=== PATIENT | female | born 2000 | race Caucasian/White ===

== ENCOUNTER 2024-11-19 08:09 | Outpatient (CLI) | payer BC, SELFPAY | END 2024-11-19 08:10 | disposition home or self-care (01) | LOC: US 08:09 | PROVIDERS: Visit Provider Physician Assistant | DX: Z34.91 Encounter for supervision of normal pregnancy, unspecified, first trimester (principal); O34.81 Maternal care for other abnormalities of pelvic organs, first trimester; N83.11 Corpus luteum cyst of right ovary; Z3A.08 8 weeks gestation of pregnancy | CPT/HCPCS: 76817; 83021; 86703; 86706; 86803; 86850; 86900; 86901; 87086; 87340; 87491; 87591 ==

== ENCOUNTER 2024-11-19 09:16 | Outpatient (CLI) | payer BC, SELFPAY ==
[2024-11-19 13:42] LABS: Chlamydia DNA Amplified* NOT DETECTED (No Detected); GC DNA Amplified* NOT DETECTED (No Detected)
== END 2024-11-19 09:17 | disposition home or self-care (01) ==
PROVIDERS: Visit Provider Physician Assistant
DX: Z34.91 Encounter for supervision of normal pregnancy, unspecified, first trimester (principal); Z3A.08 8 weeks gestation of pregnancy
CPT/HCPCS: 83020; 83021; 85660; 86592; 86703; 86704; 86706; 86762; 86787; 86803; 86850; 86900; 86901; 87086; 87340; 87491; 87591

== ENCOUNTER 2025-02-11 08:14 | Outpatient (CLI) | payer BC, SELFPAY ==
--- NOTE | 2025-02-11 08:15 | CRLHL7_ITS ---
For Patients: As a result of the Century Cures Act, medical imaging exams and procedure reports are released immediately into your electronic medical record. You may view this report before your referring provider. If you have questions, please contact your health care provider. OB ULTRASOUND SURVEY LMP: 09/24/2024. SANDRITA by LMP: 07/01/2025. SANDRITA by US: 06/30/2025. GA: 20 w, 0 d. INDICATION: FAS. TECHNIQUE: Real time booth scale imaging of the fetus was performed. Evaluate anatomy. Transabdominal imaging performed. position: Vertex. Cervix: Visualized. Technique: Transabdominal. Length of closed cervix: 3.8 cm. Placenta/cord: Posterior. Technique: Transabdominal. Placenta tip to internal OS: 3.8 cm. Umbilical Cord: 3-vessel cord. Placenta insertion: Central. Amniotic Fluid: 4.4 cm SDP (greater than/equal to: 2- less than 8 cm). SURVEY: Observed Structures. Calvarium/Spine: Cerebellum: 20 cm, 20 w 4 d. Cisterna Magna: 5.8 mm. Nuchal Fold: 5.6 mm. Lateral Ventricle: 8.1 mm. CSP: Yes. Midline Falx: Yes. Choroid Plexus: Yes. Spine: Yes. Abdomen: Stomach: Yes. Abd Cord Insertion: Yes. Urinary Bladder: Yes. Kidneys: Yes. Diaphragm: No. Face: Nose/lips: No. Orbital view: Yes. Profile: No. Limbs: Upper Extremities: Yes. Lower Extremities: Yes. Hands: Yes. Feet: Yes. Vascular: 4-Chamber Heart: No. LVOT: No. RVOT: No. 3VV: No. 3VTV: No. BPD: 4.9 cm. 20 w, 5 d, 77.6 percent. HC: 18.0 cm. 20 w, 3 d, 63.3 percent. AC: 15.8 cm. 20 w, 6 d, 74.3 percent. FL: 3.6 cm. 21 w, 3 d, 87.8 percent. FL/AC ratio: 22.9 percent. HC/AC ratio: 1.1. heart rate: 161 bpm. age by this US: 20 w, 6 d. SANDRITA by this US: 06/25/2025. EFW: 398.3 g. Weight: 14 oz. Percentile by SANDRITA: 94.5 percent. IMPRESSION: 1. Concordance of clinical and sonographic dating. 2. Incomplete visualization of the diaphragm, nose, lips, profile, four-chamber heart, LVOT, RVOT, three-vessel view and three-vessel tracheal view. This is primarily due to position. The remainder of the anatomic survey is normal. Short-term follow-up recommended. Tristan Rod M.D. Diagnostic Radiologist [email or web address] ELIN/Dictated by: Tristan Rod MD @ 02/11/2025 9:54:00 PM (Electronically Signed)
== END 2025-02-11 08:15 | disposition home or self-care (01) ==
LOC: US 08:15
PROVIDERS: Visit Provider Physician Assistant
DX: Z34.92 Encounter for supervision of normal pregnancy, unspecified, second trimester (principal); O35.9XX0 Maternal care for (suspected) fetal abnormality and damage, unspecified, not applicable or unspecified; Z3A.20 20 weeks gestation of pregnancy
CPT/HCPCS: 76805

== ENCOUNTER 2025-03-04 08:44 | Outpatient (CLI) | payer BC, SELFPAY ==
--- NOTE | 2025-03-04 09:15 | CRLHL7_ITS ---
For Patients: As a result of the Cures Act, medical imaging exams and procedure reports are released immediately into your electronic medical record. You may view this report before your referring provider. If you have questions, please contact your health care provider. OB ULTRASOUND LMP: 09/24/2024. SANDRITA by LMP or US: 07/01/2025. GA: 23 w, 0 d. INDICATION: Follow-up anatomy. TECHNIQUE: Real time grayscale imaging of the fetus was performed. Transabdominal. position: Breech Cervix: Not visualized. Amniotic Fluid: 4.3 cm SDP (greater than/equal to: 2- less than 8 cm). Placenta/cord: Posterior. Technique: Transabdominal. Dopplers: Feta heart rate: 159 bpm. IMPRESSION: Normal diaphragm, nose, lips, profile, LVOT, RVOT, three-vessel trachea view, and three-vessel view along with a normal four-chamber heart. Tristan Rod M.D. Diagnostic Radiologist [email or web address] MARIA A/jesusita mc/Dictated by: Tristan Rod MD @ 03/04/2025 10:42:00 AM (Electronically Signed)
== END 2025-03-04 08:45 | disposition home or self-care (01) ==
LOC: US 08:44
PROVIDERS: Visit Provider Obstetrics & Gynecology
DX: Z34.92 Encounter for supervision of normal pregnancy, unspecified, second trimester (principal); Z3A.23 23 weeks gestation of pregnancy
CPT/HCPCS: 76816

== ENCOUNTER 2025-04-01 08:15 | Outpatient (CLI) | payer BC, SELFPAY | END 2025-04-01 08:16 | disposition home or self-care (01) | LOC: NFLDREF 04-03 02:07 | PROVIDERS: Visit Provider Obstetrics & Gynecology | DX: Z34.83 Encounter for supervision of other normal pregnancy, third trimester (principal) | CPT/HCPCS: 86592 ==

== ENCOUNTER 2025-04-08 08:15 | Outpatient (CLI) | payer BC, SELFPAY | END 2025-04-08 08:16 | disposition home or self-care (01) | LOC: NFLDREF 04-11 06:58 | PROVIDERS: Visit Provider Obstetrics & Gynecology | DX: O99.810 Abnormal glucose complicating pregnancy (principal); Z3A.27 27 weeks gestation of pregnancy | CPT/HCPCS: 82951; 82952 ==

== ENCOUNTER 2025-05-02 09:30 | Outpatient (CLI) | payer BC, SELFPAY | END 2025-05-02 09:31 | disposition home or self-care (01) | LOC: NFLDREF 09:31 | PROVIDERS: Visit Provider Obstetrics & Gynecology | DX: Z20.828 Contact with and (suspected) exposure to other viral communicable diseases (principal) | CPT/HCPCS: 86747 ==

== ENCOUNTER 2025-05-06 07:03 | Outpatient (CLI) | payer BC, SELFPAY ==
--- NOTE | 2025-05-06 07:15 | CRLHL7_ITS ---
For Patients: As a result of the Century Cures Act, medical imaging exams and procedure reports are released immediately into your electronic medical record. You may view this report before your referring provider. If you have questions, please contact your health care provider. OB ULTRASOUND FOLLOW-UP/LIMITED, 05/06/2025 CLINICAL HISTORY: Gestational diabetes. COMPARISON: 03/04/2025, 02/11/2025. TECHNIQUE: Real time booth scale imaging of the fetus was performed. Transabdominal and imaging performed. FINDINGS: SANDRITA by LMP: 07/01/2025. GA: 32 weeks 0 days. Gestation: Single. Cervix: Not visualized. Positioning: Vertex. Amniotic Fluid: 4.6 cm SDP. Placenta: Technique: TA. Placenta Position: Posterior. Dopplers: Heart Rate: 139 bpm. BIOMETRY: BPD: 8.5 cm, 34 weeks 2 days. 95% HC: 30.8 cm, 34 weeks 2 days. 75% AC: 30.0 cm, 34 weeks 0 days. 94% FL: 6.1 cm, 31 weeks 5 days. 31% FL/AC Ratio: 20.37% HC/AC Ratio: 1.02. EFW: 2196 grams. 4 lb 13 oz. Age by this US: 33 weeks 4 days. SANDRITA by this US: 06/20/2025. Percentile by SANDRITA: 84% IMPRESSION: 1. Sonographic gestational age 33 weeks 4 days and sonographic due date 06/20/2025. Sonographic age is 11 days ahead of the clinical age. 2. Estimated weight 84th percentile. Abdominal circumference 94th percentile. Tristan Rod M.D. Diagnostic Radiologist [email or web address] Transcribed: 9:16 am DW/Dictated by: Tristan Rod MD @ 05/06/2025 8:44:00 AM (Electronically Signed)
== END 2025-05-06 07:04 | disposition home or self-care (01) ==
LOC: US 07:04
PROVIDERS: Visit Provider Obstetrics & Gynecology
DX: O24.419 Gestational diabetes mellitus in pregnancy, unspecified control (principal); O36.63X0 Maternal care for excessive fetal growth, third trimester, not applicable or unspecified; Z3A.32 32 weeks gestation of pregnancy
CPT/HCPCS: 76816

== ENCOUNTER 2025-06-03 11:13 | Outpatient (CLI) | payer BC, SELFPAY ==
--- NOTE | 2025-06-03 11:30 | CRLHL7_ITS ---
For Patients: As a result of the Century Cures Act, medical imaging exams and procedure reports are released immediately into your electronic medical record. You may view this report before your referring provider. If you have questions, please contact your health care provider. OB ULTRASOUND LMP: 09/24/2024. SANDRITA by LMP: 07/01/2025. GA: 36 w, 0 d. Single. Comparison: 05/06/2025, 03/04/2025, 02/11/2025. INDICATION: GDM. TECHNIQUE: Real time grayscale imaging of the fetus was performed. Transabdominal. CERVIX: Not visualized. POSITIONING: Vertex. AMNIOTIC FLUID: 5.5 cm. SDP (N: greater than 2 x 1 cm) PLACENTA: Technique: Transabdominal. PLACENTA POSITION: Posterior. DOPPLER: heart rate: 141 bpm. BIOMETRY: BPD: 9.2 cm. 37 w, 3 d, 90.1 percent. HC: 33.8 cm. 38 w, 6 d, 85.2 percent. AC: 34.3 cm. 38 w, 1 d, >97 percent. FL: 7.1 cm. 36 w, 3 d, 55.9 percent. FL/AC ratio: 20.7 percent. HC/AC ratio: 1.0. EFW: 3296 g. Weight: 7 lbs, 4 oz. age by this US: 37 w, 5 d. SANDRITA by this US: 06/19/2025. Percentile by SANDRITA: 91.1 percent. IMPRESSION: 1. Sonographic gestational age 37 weeks 5 days with sonographic due date 06/19/2025. Sonographic age is 12 days ahead of the clinical age. 2. Estimated weight 91st percentile. Abdominal circumference greater than 97th percentile. Tristan Rod M.D. Diagnostic Radiologist [email or web address] MARIA A/jesusita mc/Dictated by: Tristan Rod MD @ 06/03/2025 3:47:00 PM (Electronically Signed)
== END 2025-06-03 11:14 | disposition home or self-care (01) ==
LOC: US 11:14
PROVIDERS: Visit Provider Obstetrics & Gynecology
DX: O24.419 Gestational diabetes mellitus in pregnancy, unspecified control (principal); O36.63X0 Maternal care for excessive fetal growth, third trimester, not applicable or unspecified; Z3A.36 36 weeks gestation of pregnancy; Z23 Encounter for immunization; Z34.90 Encounter for supervision of normal pregnancy, unspecified, unspecified trimester
CPT/HCPCS: 76816

== ENCOUNTER 2025-06-03 12:45 | Outpatient (CLI) | payer BC, SELFPAY | END 2025-06-03 12:46 | disposition home or self-care (01) | LOC: NFLDREF 06-09 02:01 | PROVIDERS: Visit Provider Advanced Practice Midwife | DX: Z23 Encounter for immunization (principal); Z34.90 Encounter for supervision of normal pregnancy, unspecified, unspecified trimester | CPT/HCPCS: 86747; 87081; 87653 ==

== ENCOUNTER 2025-07-01 11:53 | Outpatient (CLI) | payer BC, SELFPAY ==
--- NOTE | 2025-07-01 12:15 | CRLHL7_ITS ---
For Patients: As a result of the Century Cures Act, medical imaging exams and procedure reports are released immediately into your electronic medical record. You may view this report before your referring provider. If you have questions, please contact your health care provider. OBSTETRICAL ULTRASOUND ??? FOLLOW-UP INDICATION: GDMA1. Follow-up. CLINICAL HISTORY: SANDRITA by LMP: 07/01/2025 Gestational Age: 40 weeks 0 days COMPARISON: 06/03/2025, 05/06/2025, 03/04/2025 TECHNIQUE: Real-time booth-scale transabdominal imaging of the fetus was performed. FINDINGS: Fetus: Single Cervix: Not visualized positioning: Vertex Amniotic Fluid: 6.0 cm SDP Placenta technique: Transabdominal Placenta position: Posterior heart rate: 128 bpm BIOMETRY: BPD: 9.8 cm, 40 weeks 1 day, 90.5% HC: 36.1 cm, out of range, 93.7% AC: 39.2 cm, out of range, >97% FL: 7.8 cm, 40 weeks 1 day, 64.3% FL/AC Ratio: 19.98% HC/AC ratio: 0.92 EFW: 4636 grams; 10 lbs. 4 oz. age by this ultrasound: 40 weeks 1 day Percentile by SANDRITA: >97% COMMENTS: Machine unable to calculate all measurements (out of range). IMPRESSION: 1. Sonographic gestational age is 40 weeks 1 day and sonographic due date is considered out of range. 2. Estimated weight is greater than 97th percentile. Abdominal circumference is greater than 97th percentile. TRISTAN TREVIÑO M.D. Diagnostic Radiologist [email or web address] Transcribed: 1:[address]/Dictated by: Tristan Treviño MD @ 07/01/2025 12:34:00 PM (Electronically Signed)
== END 2025-07-01 11:54 | disposition home or self-care (01) ==
PROVIDERS: Visit Provider Obstetrics & Gynecology
DX: O24.410 Gestational diabetes mellitus in pregnancy, diet controlled (principal); Z3A.40 40 weeks gestation of pregnancy
CPT/HCPCS: 76816

== ENCOUNTER 2025-07-04 07:54 | Inpatient (IN) | payer BC, SELFPAY ==
[2025-07-04] VITALS (54 sets, daily range): BP systolic 106–129; BP diastolic 59–88; PULSE 53–88; RESP 16–20; TEMP 36.4–37; O2SAT 96–100; BMI 38.0
[2025-07-04 08:23] LABS: Hemoglobin* 15.0 gm/dL (12.0-16.0)
[2025-07-04] MEDS: LACTATED RINGERS 1000 ML 1,000 ML IV (08:27)
[2025-07-04 09:31] LABS: Hematocrit* 43.4 % (33.0-51.0); Hemoglobin* 14.9 gm/dL (12.0-16.0); Immature Granulocytes Pct Auto 1.0 %; Mean Corpuscular HGB Conc 34 gm/dL (32-36); Mean Corpuscular Hemoglobin 31 pg (26-34); Mean Corpuscular Volume 91 fL (80-100); RDW Coefficient of Variation % 12.0 % (11.5-15.5); Red Blood Count* 4.75 m/uL (4.00-5.20); White Blood Count* 11.59 K/uL (4.50-11.00)
[2025-07-04 09:34] LABS: Immature Granulocytes Abs Auto 0.10 K/uL (0.00-0.30); Lymphocytes Absolute Auto 3.00 K/uL (0.90-2.90); Slide Review Reflex No
--- NOTE | 2025-07-04 10:19 | SUR.OPER ---
PATIENT QUESTIONS ANSWERED SATISFACTORILY PREOPERATIVELY. PATIENT BROUGHT TO OR #5 BY AMBULATION BY OB RN. Patient positioned supine with a bump under the right hip on OR #5 bed. Final approval of positioning by surgeon.
--- NOTE | 2025-07-04 10:27 | SUR.OPER ---
SURGEON DECLINES OFFER TO SEND THE PLACENTA TO PATHOLOGY.
--- NOTE | 2025-07-04 10:43 | W.PM.H&PU ---
History & Physical Update History & Physical Update H&P Reviewed and patient assessed: No changes noted H&P Updates: Patient here for scheduled primary section for GDMA1 and suspected macrosomia.
--- NOTE | 2025-07-04 10:44 | P.OBPRC_ITS ---
Procedure Date of procedure: 07/04/25 Pre-op diagnosis: 1. 40 3/7 weeks gestation. 2. GDMA1. 3. Suspected macrosomia, EFW by ultrasound >4600g. Post-op diagnosis: other (1. 40 3/7 weeks gestation, 2. GDMA1, 3. AGA infant) Procedure Done: Global Will [facility] bill your pro fee for this procedure?: Yes Blood Loss Measurement Type: QBL (655 mL.) Bakri Used: No IV fluids (mL): 1,700 Urine Output (mL): 100 Urine Output Comment: clear Surgeon: Nona Beth MD Garage Construction Equipment Mechanic: Katerina MURILLO Anesthesia Type: Spinal and TAP Block Findings: Live-born male, cephalic presentation, nuchal cord x1, Apgars 8 and 9 at 1 and 5 minutes respectively, weight 4150 g or 9 lb 2 oz. Normal appearing uterus, ovaries, and fallopian tubes. Procedure Name: Primary low transverse section. Procedure Description: After obtaining informed consent, the patient was taken to the operating room wh ere spinal anesthesia was obtained and found to be adequate. She was prepared and draped in the normal sterile fashion in the dorsal supine position with a leftward tilt. A Pfannenstiel skin incision was made with a scalpel. This incision was carried down to the underlying layer of fascia with the Bovie. The fascia was incised in the midline and the incision extended laterally. The superior and inferior aspects of the fascial incision were grasped with Todd clamps, elevated and the underlying rectus muscles dissected off sharply and with electrocautery. The rectus muscles were then in the midline. The vesicouterine peritoneum was entered bluntly and extended with blunt finger fractionation. The Olegario O retractor was then placed into the incision. The lower uterine segment was then incised in a transverse fashion with the scalpel. Upon entry into the uterus, clear amniotic fluid was noted. The uterine incision was extended laterally with blunt finger fractionation. The infant's head was delivered atraumatically, followed by the remainder of the 's body. The nose and mouth were suctioned with the bulb suction. The cord was doubly clamped and cut, and the was handed off the field to Peds for evaluation. The placenta was delivered spontaneously with umbilical cord traction and fundal massage. The uterus was cleared of all clots and debris. The uterine incision was reapproximated in a running locking fashion with a 0 chromic suture. A 2nd layer of the same suture was used to imbricate in horizontal fashion. Excellent hemostasis was obtained with the closure in two layers. The gutters were inspected and clots removed.. All instruments and retractors were removed. The anterior peritoneum was reapproximated in a running fashion with a 3-0 Vicryl suture. The subfascial tissues were carefully inspected and hemostasis assured. The fascia was reapproximated in a running fashion with a looped 0 Maxon suture. The subcutaneous tissues were copiously irrigated. Hemostasis was assured. The subcutaneous fat layer was reapproximated with interrupted sutures of 3-0 plain gut. The skin was closed in a subcuticular fashion with 4-0 Vicryl. Surgical glue and dressing were applied. A TAP block was administered by the GOLF CART REPAIRER. The patient tolerated the procedure well. Sponge, lap, needle, and instrument counts were reported as correct x2. The patient was taken to the recovery room, awake, and in stable condition. She did receive 3 grams of IV Ancef preoperatively and 30 mg IV Toradol at the conclusion of the procedure. Complications: None. Pathology: none sent Surgery Debrief Performed: Yes Condition: stable Disposition: floor
--- NOTE | 2025-07-04 13:03 | P.ANES_ITS ---
Anesthesia Charges Start Date/Time Anesthesia Start Date: 07/04/25 Anesthesia Start Time: 09:35 Stop Date/Time Anesthesia Stop Date: 07/04/25 Anesthesia Stop Time: 11:16 Coding CPT Codes CPT Codes: ANESTH CS DELIVERY - 20885 ([id number]) P2 - PATIENT W/MILD SYST DISEASE, QZ - MANAGER CCU SVC W/O OPERATING ENGINEER BY
--- NOTE | 2025-07-04 13:03 | W.ANESCHARGE ---
Anesthesia Charges Start Date/Time Anesthesia Start Date: 07/04/25 Anesthesia Start Time: 09:35 Stop Date/Time Anesthesia Stop Date: 07/04/25 Anesthesia Stop Time: 11:16 Coding CPT Codes CPT Codes: ANESTH CS DELIVERY - 37704 ([id number]) P2 - PATIENT W/MILD SYST DISEASE, QZ - SEARCH ANALYST SVC W/O DEPLOYMENT TECHNICIAN BY
--- NOTE | 2025-07-04 13:06 | W.PM.NB ---
Nerve Block Nerve Block Time Seen by Provider: 10:45 Date Seen: 07/04/25 Type of block requested by surgeon for post-operative analgesia: TAP Side: bilateral Time out performed: Yes Verification of patient name: Yes Verification of date of : Yes Site marking: site marked Name of person performing procedure: Meghann Skluangelicnishamarlyn Continuous monitoring Was continuous monitoring of O2 sat, B/P, media monitor, recorded every 15 minutes?: Yes Procedure Checklist: sterile prep, needles and gloves Ultrasound guided. Images saved: Yes Medications given in 5ml increments after negative aspiration: Marcaine %: 0.25 mL: 30 and Exparel mL: 10 Patient tolerated procedure well: Yes Block Charges Block Charge (with Pro Fee): TAP Bilateral Use of Ultrasound Machine for Block: Yes- US Guidance/pain block
[2025-07-04] MEDS: ACETAMINOPHEN 500 MG TABLET 1000 MG PO ×2 (13:15→20:06)
[2025-07-04] MEDS: SODIUM CHLORIDE 0.9 % (FLUSH) 10 ML SYRINGE IVF (22:45)
[2025-07-05 00:37] VITALS: BP 116/79; PULSE 59; RESP 20; TEMP 36.9; O2SAT 97
[2025-07-05 04:40] VITALS: BP 108/75; PULSE 64; RESP 20; TEMP 36.6; O2SAT 97
[2025-07-05 06:17] LABS: Hemoglobin* 11.9 gm/dL (12.0-16.0)
[2025-07-05 07:12] LABS: Glucose* 74 mg/dL (60-115)
[2025-07-05 08:12] VITALS: BP 113/77; PULSE 66; RESP 16; TEMP 36.4; O2SAT 96
[2025-07-05] MEDS: DOCUSATE SODIUM 100 MG CAPSULE PO (10:12)
[2025-07-05 14:00] VITALS: BP 111/75; PULSE 70; RESP 16; TEMP 36.4; O2SAT 98
--- NOTE | 2025-07-05 15:49 | PM.OBPNVD1 ---
OB - PN:Subj Subjective Date Seen: 07/05/25 Patient comments OB post-: no complaints, pain well controlled, tolerating diet and flatus present [place] status: Narrative: Patient feels well. She is sitting up in bed. She has no concerns. OB - PN: Obj Exam Physical Exam: Vital signs: Temp Pulse Resp BP Pulse Ox O2 Del Method 97.6 F 66 16 113/77 96 Room Air 07/05/25 08:12 07/05/25 08:12 07/05/25 08:12 07/05/25 08:12 07/05/25 08:12 07/05/25 08:12 Constitutional: Constitutional: no acute distress Routine Neck Exam: Neck: Present normal inspection Routine Respiratory Exam: Respiratory: Present CTA bilaterally; Absent respiratory distress Routine Cardiovascular Exam: Cardiovascular: Present RRR; Absent murmur Routine Abdominal Exam: Abdominal: Present soft; Absent tenderness Fundus: Present firm Routine Extremities Exam: Extremities: Present normal inspection and pedal edema; Absent calf tenderness Routine Neurological Exam: Neurological: Present alert and oriented X3 Routine Psychiatric Exam: Psychiatric: Present normal affect Wound Management: Method: suture Examination: Present dressed, clean and dry; Absent erythematous Comments: Pfannenstiel incision OB - PN: Obj Data Labs Labs: Laboratory Results - last 24 hr 07/05/25 05:35 Hgb 11.9 L Glucose 74 OB - PN: A/P Delivery Assessment and Plan (1) Status post primary low transverse section: Problem details: For suspected macrosomia in the setting of GDM A1 Status: Acute (2) Gestational diabetes: Status: Acute Assessment and Plan: Fasting blood sugar this morning is 74. Plan 2 hour GTT prior to discharge planned. Plan day: 1 Plan: routine care Comments: Dressing to be removed today.
[2025-07-05] MEDS: ACETAMINOPHEN 500 MG TABLET 1000 MG PO (18:45)
[2025-07-05 20:54] VITALS: BP 106/70; PULSE 80; RESP 16; TEMP 36.7; O2SAT 96
[2025-07-05] MEDS: IBUPROFEN 600 MG TABLET PO (21:01)
[2025-07-06] MEDS: ACETAMINOPHEN 500 MG TABLET 1000 MG PO ×2 (01:03→07:10)
[2025-07-06] MEDS: IBUPROFEN 600 MG TABLET PO ×2 (03:11→10:04)
[2025-07-06 03:59] VITALS: BP 116/80; PULSE 63; RESP 14; TEMP 36.5; O2SAT 98
--- NOTE | 2025-07-06 06:21 | PC.NURSE ---
Pt had fasting glucose drawn by lab as well as fingerstick blood glucose taken before beginning Glucose Tolerance Test this morning per order. Fingerstick blood glucose of 77. Glucose drink was finished at 0618 and lab was updated that pt's glucose will need to be redrawn at 0818.
[2025-07-06 08:42] LABS: Glucose 2 Hour 131 mg/dl (70-155)
[2025-07-06] MEDS: DOCUSATE SODIUM 100 MG CAPSULE PO (10:04)
--- NOTE | 2025-07-06 11:35 | PM.OBDSVD1 ---
DS: Providers Provider Date Seen: 07/06/25 Date of admission: 07/04/25 07:54 Primary care physician: Not a Local Provider Admitting Clinician: Nona Beth MD Attending Physician on discharge: Nona Beth MD Date of Discharge: 07/06/25 DS: Diagnosis Discharge Diagnosis (1) Status post primary low transverse section: Status: Acute Problem details: For suspected macrosomia in the setting of GDM A1 (2) Gestational diabetes: Status: Acute Problem details: resolved Exam Const: Vital Signs, click to edit/add: Vital Signs - 24 hr 07/05/25 14:00 07/05/25 20:54 07/06/25 03:59 Temperature 97.6 F 98.1 F 97.7 F Pulse Rate [Pulse Oximeter] 70 80 63 Respiratory Rate 16 16 14 Blood Pressure [Ri ght Arm] 111/75 106/70 116/80 Pulse Oximetry 98 96 98 Oxygen Delivery Me thod Room Air Room Air Room Air Documenting provider has reviewed patient's vital signs: yes Common normals: no apparent distress and oriented x3 General appearance: cooperative and comfortable HENMT: Common normals: normocephalic Head and scalp: normocephalic Resp: Common normals: normal respiratory effort Cardio: Common normals: regular rate and regular rhythm Rate: regular rate Rhythm: regular rhythm GI: Common normals: soft to palpation and non-tender Inspection: normal to inspection and incision (Slight ecchymoses below the incision, mild edema in the skin) Inspection of incision: healing well Palpation: soft Extremity: Common normals: normal to inspection and no pedal edema Neuro: Common normals: oriented x3 Psych: Common normals: affect normal OB - DS: Summary Hospital Course Hospital Course: The patient is a 25 year old G 2 now P 2001 that was admitted to the Center on 07/04/25 for primary section for suspected macrosomia in the setting of GDM A1. She had an uncomplicated delivery. She delivered a viable male infant weighing 9 lb 2 oz. She is . the patient has done well. Peripartum Data Infant delivery method: Primary C/S; Non-Labored Procedures: Procedures Operation Date: 07/04/25 09:30 Actual Procedure Side Surgeon p Primary Section Nona Beth MD Gender: Male Discharge Plan: Home Status at Discharge Functional status at discharge: independent ambulation Overall status at discharge: patient is back to baseline Time Spent with Patient Time attestation: Total time spent providing and/or coordinating discharge services: Time spent: Less than 30 minutes Discharge Plan Discharge Disposition: Home, Self-Care Date of Admission: 07/04/25 07:54 Attending Provider on Discharge: Nona Beth Primary Care Provider: Provider,Not a Local Condition: Stable Anticipated Discharge Date/Time: 07/06/25 11:43 Discharge Medications: New ibuprofen 600 mg Tablet 600 mg PO Q6H PRN (Reason: Pain) Qty: 30 0RF Continued SSC-oyxe-MV-omega 3 fatty no.1 27-1-300 mg capsule PO Discontinued aspirin 81 mg tablet 81 mg PO QDAY (DME) Blood Glucose Meter Misc See Rx Instructions .MEDSUPPLY Qty: 1 0RF Rx Instructions: As directed (DME) lancets Misc See Rx Instructions .MEDSUPPLY Qty: 100 3RF Rx Instructions: Test blood sugar 4 times daily. (DME) Test Strips Misc See Rx Instructions .MEDSUPPLY Qty: 100 3RF Rx Instructions: Test blood sugar 4 times daily. Discharge Orders: Discharge Order (Routine); Ordered 07/06/25 Ordered By: Nona Beth Patient Education: Bupivacaine Liposome (By injection), OB Over the Counter Medication Information, OB /Breast Feeding Additional Instructions: Continue Tylenol 1000 mg every 6 hours for pain, alternating with prescription ibuprofen. Use OTC Colace 100 mg once or twice daily for constipation. Activity Level: Activity as Tolerated Discharge Diet: Regular Follow Up Appointments: Provider,Not a Local [Primary Care Provider, Family Practice] Forms: Des[employer] Info Instructions DS:Data Additional Comments Additional comments: 11.9
[2025-07-06 11:55] VITALS: BP 139/82; PULSE 75; RESP 14; TEMP 36.4; O2SAT 99
== END 2025-07-06 12:45 | disposition home or self-care (01) | DRG 540 ==
PROVIDERS: Admitting Provider Obstetrics & Gynecology; Visit Provider Obstetrics & Gynecology
PROC: 10D00Z1 Extraction of Products of Conception, Low, Open Approach (ICD-10-PCS; CPT 59514; principal; 2025-07-04 09:30)
DX: O24.429 Gestational diabetes mellitus in childbirth, unspecified control (principal); O36.63X0 Maternal care for excessive fetal growth, third trimester, not applicable or unspecified; G89.18 Other acute postprocedural pain; Z3A.40 40 weeks gestation of pregnancy; Z37.0 Single live birth
CPT/HCPCS: 01961; 36415; 64488; 76942; 82947; 82950; 82962; 85018; 85025; 86592; 86850; 86900; 86901; A4314; A9270; J0665; J0666; J0690; J1885; J2371; J2405; J2590; J3010; J7120